=== PATIENT | female | born 1995 | race Caucasian/White ===

== ENCOUNTER 2017-01-21 16:55 | Inpatient (IN) | payer MEDICAID ==
[~2017-01-21 16:55] MED LIST: FOLI1TAB6 PO; PREN-96 PO
[2017-01-21] MEDS ORDERED: LACT. RINGERS/OXYTOCIN 20UNITS 1,000 ML IV SCH (17:36)
[2017-01-21] MEDS ORDERED: LACTATED RINGER'S 1,000 ML IV SCH (17:36)
[2017-01-21] MEDS ORDERED: PHISODERM TOP SOLN 240ML BTL TOP PRN (17:45)
[2017-01-21] MEDS ORDERED: CARBOPROST TROMETHAMINE 250 MCG/1ML VIAL IM PRN (17:45)
[2017-01-21] MEDS ORDERED: DERMOPLAST 60ML BOTTLE TOP PRN (17:45)
[2017-01-21] MEDS ORDERED: METHYLERGONOVINE MALEATE 0.2 MG/ML AMP IM PRN (17:45)
[2017-01-21] MEDS ORDERED: WITCH HAZEL-GLYCERIN PAD TOP PRN (17:45)
[2017-01-21] MEDS ORDERED: LIDOCAINE 2%HCL (LOCAL ANESTH.) INJ 20ML MDV IJ PRN (17:45)
[2017-01-21] MEDS ORDERED: LACT. RINGERS/OXYTOCIN 20UNITS 500 ML IV ONE (19:08)
[2017-01-21 19:47] LABS: Basophils # (auto) 0 uL; DEFINITIVE VIEW TRANSMISSION; Eosinophils # (auto) 0 uL; Hematocrit 34.9 % (36.0-46.0); Hemoglobin 11.4 g/dL (12.2-16.2); Mean Corpuscular Hgb Conc. 32.6 g/dL (32.0-36.0); Platelet Count (auto) 239 10^3/uL (140-450); SUSPECT VIEW TRANSMISSION
[2017-01-21 19:52] LABS: Urine Bilirubin Negative (Negative); Urine Blood TRACE /uL (Negative); Urine Color Yellow (Yellow); Urine Glucose Normal (Normal); Urine Mucus FEW (None Seen); Urine Nitrite Negative (Negative); Urine RBC 1 /hpf (0 - 4); Urine Squamous Epithelial Cell MOD /hpf (<5); Urine Urobilinogen Normal (Negative); Urine pH 7.5 (5.0-8.0)
[2017-01-21 19:55] LABS: Basophils % (auto) 0.1 % (0.0-2.0); Lymphocytes # (auto) 1.3 uL; Lymphocytes % (auto) 7.7 % (10.0-50.0); Mean Corpuscular Hemoglobin 27.7 pg (28.0-32.0); Mean Platelet Volume 9.9 fL (7.4-10.4); Monocytes % (auto) 5.6 % (0.0-12.0); Neutrophils # (auto) 15.1 uL; Neutrophils % (auto) 86.6 % (37.0-80.0); Red Cell Distribution Width 18.8 % (11.6-16.0); White Blood Cell 17.5 10^3/uL (4.4-10.8)
[2017-01-21 19:55] LABS: Urine Ketone 2+ (Negative)
[2017-01-21 20:00] LABS: Albumin 2.8 g/dL (3.4-5.0); BUN/Creatinine Ratio 7.7; Bilirubin, Total 0.4 mg/dL (0.2-1.0); Calcium 8.7 mg/dL (8.5-10.1); Potassium 3.6 mmol/L (3.5-5.1); Total Protein 6.8 g/dL (6.4-8.2); Uric Acid 3.2 mg/dL (2.6-6.0)
[2017-01-21 20:04] LABS: INR 0.96 (0.9-1.15); Partial Thromboplastin Time 24.2 sec (22.64-33.71); Prothrombin Time 9.9 sec (9.37-12.3)
[2017-01-21] MEDS: IBUPROFEN 600 MG TAB PO PRN (21:33)
[2017-01-22] VITALS (7 sets, daily range): BP systolic 97–116; BP diastolic 51–74
[2017-01-22] MEDS: IBUPROFEN 600 MG TAB PO PRN ×3 (03:42→16:57)
[2017-01-22] MEDS: ACETAMINOPHEN 325 MG TAB PO PRN ×2 (13:54→20:59)
[2017-01-23 03:02] VITALS: BP 98/53
[2017-01-23] MEDS: IBUPROFEN 600 MG TAB PO PRN ×2 (03:05→09:13)
[2017-01-23 06:42] VITALS: BP 100/72
[2017-01-23] MEDS ORDERED: FERR-7 PO (06:49)
== END 2017-01-23 09:45 | disposition home or self-care (01) | DRG 560 ==
LOC: LDRP 16:55
PROVIDERS: ADMIT Obstetrics & Gynecology; ATTEND Obstetrics & Gynecology
PROC: 10E0XZZ Delivery of Products of Conception, External Approach (ICD-10-PCS; principal; 2017-01-21)
DX: O77.0 Labor and delivery complicated by meconium in amniotic fluid (principal); Z88.0 Allergy status to penicillin; Z37.0 Single live birth; Z3A.40 40 weeks gestation of pregnancy; Z91.018 Allergy to other foods
CPT/HCPCS: 36415; 59025; 80053; 81001; 84550; 85025; 85610; 85730; 86592; 86703; 86762; 86850; 86900; 86901; 87340; 96365; 96366; G0434

== ENCOUNTER 2022-07-13 18:17 | Emergency (ER) | payer MEDICAID ==
[~2022-07-13] VITALS: Ht 157.5 cm; Wt 46.4 kg
[~2022-07-13 18:17] MED LIST changes: +FERR-7 PO
[2022-07-13 19:30] VITALS: BP 98/64
[2022-07-13 22:11] LABS: Urine Bacteria MANY /hpf (None Seen); Urine Blood Negative /uL (Negative); Urine Mucus FEW (None Seen); Urine Specific Gravity 1.021 (1.001-1.035); Urine WBC 29 /hpf (0 - 5)
== END 2022-07-14 02:49 | disposition left against medical advice (07) ==
LOC: ER 18:17
DX: R21 Rash and other nonspecific skin eruption (principal); Z53.21 Procedure and treatment not carried out due to patient leaving prior to being seen by health care provider
CPT/HCPCS: 81001; 81025